=== PATIENT | female | born 1990 | race Two or more races ===

== ENCOUNTER → 2023-12-30 10:53 | Outpatient (CLI) | payer OTHER | END | disposition home or self-care (01) | LOC: PRENATAL 10:53 | PROVIDERS: ATTEND Obstetrics & Gynecology Maternal & Fetal Medicine | DX: O26.843 Uterine size-date discrepancy, third trimester (principal); O34.219 Maternal care for unspecified type scar from previous cesarean delivery; Z3A.29 29 weeks gestation of pregnancy ==

== ENCOUNTER 2024-03-02 13:49 | Inpatient (IN) | payer OTHER ==
[~2024-03-02] VITALS: Ht 157.5 cm; Wt 3.2 kg
[2024-03-02] MEDS ORDERED: PRENATABS FA T1 EACH PO (13:52)
[2024-03-02 14:07] LABS: HEMATOCRIT 35.9 % (36.0-45.00); HEMOGLOBIN 11.8 g/dL (12.0-15.00); MEAN CELL VOLUME 86.5 fL (80.00-100.00); MEAN CORPUSCULAR HEMOGLOBIN 28.5 pg (27.00-32.0); MEAN CORPUSCULAR HGB CONC 32.9 g/dl (32.0-36.0); PLATELET COUNT 319 K/uL (150-450); RED BLOOD COUNT 4.15 M/uL (4.00-6.00); RED CELL DISTRIBUTION WIDTH 13.2 % (11.5-14.5)
[2024-03-02 14:19] LABS: PH,URINE 6.5 (5.0-8.0); URINE APPEARANCE Clear; URINE BILIRRUBIN Negative (NEGATIVE); URINE BLOOD Negative; URINE COLOR Yellow; URINE GLUCOSE Negative (NEGATIVE); URINE KETONE 15 (NEGATIVE); URINE LEUKOCYTE Trace; URINE NITRATE Negative; URINE PROTEIN Negative (NEGATIVE)
[2024-03-02 14:22] LABS: URINE BACTERIA 710.6 uL (0.0-1933); URINE EPITHELIAL CELLS 14.6 uL (0.0-38.8); URINE WBC 8.9 uL (0.0-23.2)
[2024-03-02 14:24] LABS: INR 1.05; PARTIAL THROMBOPLASTIN TIME 26.3 SECONDS (22.0-34.0); PROTHROMBIN TIME 11.4 SECONDS (9.0-11.5)
[2024-03-09 08:09] VITALS: BP 107/70
[2024-03-09] MEDS ORDERED: CEFAZOLIN SODIUM 1,000 MG VIAL IV SCH (09:30)
[2024-03-09] MEDS ORDERED: MEPERIDINE HCL/PF 50 MG/ML VIAL IM PRN (10:45)
[2024-03-09] MEDS ORDERED: PROMETHAZINE HCL 50 MG/ML AMPUL IM PRN (10:45)
[2024-03-09] MEDS ORDERED: CHLORHEXIDINE GLUCONATE 120 ML BOTTLE TOP ONE (11:45)
[2024-03-09] MEDS ORDERED: ERYTHROMYCIN BASE OPHT 1GM EACH TUBE OP ONE (11:45)
[2024-03-09] MEDS ORDERED: OXYTOCIN 10 UNITS/ML VIAL IV ONE (11:45)
[2024-03-09 14:25] VITALS: BP 123/81
[2024-03-09 15:36] LABS: HEMATOCRIT 33.9 % (36.0-45.00); HEMOGLOBIN 11.2 g/dL (12.0-15.00); MEAN CORPUSCULAR HEMOGLOBIN 28.5 pg (27.00-32.0); MEAN CORPUSCULAR HGB CONC 33.2 g/dl (32.0-36.0); PLATELET COUNT 301 K/uL (150-450); RED BLOOD COUNT 3.94 M/uL (4.00-6.00); RED CELL DISTRIBUTION WIDTH 13.7 % (11.5-14.5)
[2024-03-09 17:10] VITALS: BP 107/68
[2024-03-10] VITALS: BP 113/76
[2024-03-10] MEDS ORDERED: OxyCODONE HCL/APAP UD (PERCOCET) PO PRN (08:00)
[2024-03-10 08:11] VITALS: BP 97/60
[2024-03-10] MEDS ORDERED: PNV,CALCIUM 72/IRON/FOLIC ACID 1 TAB TABLET PO SCH (09:00)
[2024-03-10] MEDS ORDERED: DOCUSATE SODIUM 100MG CAP PO SCH (09:00)
[2024-03-10] MEDS ORDERED: SIMETHICONE 125 MG CAPSULE PO SCH (09:00)
[2024-03-10 16:00] VITALS: BP 96/66
[2024-03-11] VITALS: BP 127/79
[2024-03-11 09:24] VITALS: BP 109/75
[2024-03-11 16:19] VITALS: BP 140/64
[2024-03-11 21:27] VITALS: BP 123/73
[2024-03-12 01:16] VITALS: BP 100/65
[2024-03-12 08:45] VITALS: BP 129/84
== END 2024-03-12 17:25 | disposition home or self-care (01) | DRG 788 ==
LOC: OB/GYN 03-09 08:38 → LDR 03-09 08:38 → O/R 03-09 09:57 → LDR 03-09 12:59 → OB/GYN 03-09 13:00
PROVIDERS: ADMIT Obstetrics & Gynecology; ATTEND Obstetrics & Gynecology
PROC: 4A1HXCZ Monitoring of Products of Conception, Cardiac Rate, External Approach (ICD-10-PCS; 2024-03-09)
PROC: 10D00Z1 Extraction of Products of Conception, Low, Open Approach (ICD-10-PCS; principal; 2024-03-09 09:15)
DX: O34.211 Maternal care for low transverse scar from previous cesarean delivery (principal); Z3A.39 39 weeks gestation of pregnancy; Z37.0 Single live birth; Z20.822 Contact with and (suspected) exposure to COVID-19